=== PATIENT | male | born 1980 | race Hispanic/Latino ===

== ENCOUNTER 2021-01-23 18:15 | Emergency (ER) | payer BC ==
[~2021-01-23] VITALS: Ht 170.2 cm; Wt 107.7 kg
[2021-01-23] MEDS ORDERED: ONDANSETRON HCL 4 MG ORAL DISINTEGRATING TAB PO ONE (18:45)
[2021-01-23] MEDS ORDERED: ONDANSETRON HCL 4 MG ORAL DISINTEGRATING TAB ONE (19:07)
[2021-01-23] MEDS ORDERED: ONDANSETRON ODT4 MG PO (19:21)
[2021-01-23] MEDS ORDERED: MECLIZINE HCL12.5 MG PO (19:21)
== END 2021-01-23 19:55 | disposition home or self-care (01) ==
LOC: FSED 18:30
DX: R42 Dizziness and giddiness (principal); R51.9 Headache, unspecified
CPT/HCPCS: 70450; 93005; 99283; Q0162